=== PATIENT | female | born 1955 | race Caucasian/White ===

== ENCOUNTER 2021-07-17 14:19 | Inpatient (IN) | payer MEDICARE, BC ==
[2021-07-17] MEDS ORDERED: Baclofen 10 MG TAB PO PRN (17:55)
[2021-07-17] MEDS ORDERED: Furosemide 40 MG TAB PO PRN (17:55)
[2021-07-17] MEDS ORDERED: Promethazine 25 MG TAB PO PRN (17:55)
[2021-07-17] MEDS ORDERED: Dextrose 5% in Water 1,000 ML IV PRN (18:12)
[2021-07-17] MEDS ORDERED: Dextrose 50% Abboject 50 ML SYRINGE SLOW IVP PRN (18:12)
[2021-07-17] MEDS ORDERED: Albuterol 200 PUFF (6.7GM INHALER) INH PRN (18:58)
[2021-07-17] MEDS ORDERED: SUMAtriptan Succinate 25 MG TAB PO PRN (19:01)
[2021-07-17] MEDS: Temazepam 15 MG CAP PO SCH (22:01)
[2021-07-17] MEDS: Pregabalin 50 MG CAP PO SCH (22:02)
[2021-07-17] MEDS: NIFEdipine XL 30 MG TAB PO SCH (22:04)
[2021-07-17] MEDS: Carvedilol 6.25 MG TAB PO SCH (22:05)
[2021-07-17] MEDS: hydrALAZINE 25 MG TAB PO SCH (22:05)
[2021-07-17] MEDS: Insulin Regular 300 UNITS/3 ML VIAL SC PRN (22:06)
[2021-07-17] MEDS: Dronedarone HCl 400 MG TAB PO SCH (22:06)
[2021-07-18] MEDS: Levothyroxine Sodium 100 MCG TAB PO SCH (06:04)
[2021-07-18] MEDS: Levothyroxine Sodium 25 MCG TAB PO SCH (06:04)
[2021-07-18] MEDS ORDERED: Non-Formulary Item 1 EACH (Temazepam [Temazepam] 30 MG Capsule) PO SCH (09:00)
[2021-07-18] MEDS ORDERED: Levothyroxine Sodium 100 MCG TAB PO SCH (09:00)
[2021-07-18] MEDS: Enoxaparin Sodium 30 MG/0.3 ML SYRINGE SC SCH (09:39)
[2021-07-18] MEDS: Dronedarone HCl 400 MG TAB PO SCH ×2 (09:40→20:49)
[2021-07-18] MEDS: Aspirin 81 mg Enteric Coated Tablet PO SCH (09:40)
[2021-07-18] MEDS: Rosuvastatin 10 MG TAB PO SCH (09:41)
[2021-07-18] MEDS: NIFEdipine XL 30 MG TAB PO SCH ×2 (09:42→20:53)
[2021-07-18] MEDS: Furosemide 40 MG TAB PO SCH (09:42)
[2021-07-18] MEDS: hydrALAZINE 25 MG TAB PO SCH ×3 (09:43→20:53)
[2021-07-18] MEDS: predniSONE 10 MG TAB PO SCH (09:44)
[2021-07-18] MEDS: Carvedilol 6.25 MG TAB PO SCH ×2 (09:44→20:50)
[2021-07-18] MEDS: HumaLOG 300 UNITS/3 ML VIAL SC PRN ×2 (13:04→17:23)
[2021-07-18] MEDS: Acetaminophen/Codeine 30-300mg Tablet PO PRN (13:11)
[2021-07-18] MEDS: Temazepam 15 MG CAP PO SCH (20:46)
[2021-07-18] MEDS: Insulin Regular 300 UNITS/3 ML VIAL SC PRN (20:46)
[2021-07-18] MEDS: Pregabalin 50 MG CAP PO SCH (20:47)
[2021-07-19] MEDS: Levothyroxine Sodium 25 MCG TAB PO SCH (05:56)
[2021-07-19] MEDS: Levothyroxine Sodium 100 MCG TAB PO SCH (05:57)
[2021-07-19] MEDS: Dronedarone HCl 400 MG TAB PO SCH ×2 (10:09→20:17)
[2021-07-19] MEDS: Aspirin 81 mg Enteric Coated Tablet PO SCH (10:10)
[2021-07-19] MEDS: Enoxaparin Sodium 30 MG/0.3 ML SYRINGE SC SCH (10:11)
[2021-07-19] MEDS: hydrALAZINE 25 MG TAB PO SCH ×3 (10:11→20:17)
[2021-07-19] MEDS: NIFEdipine XL 30 MG TAB PO SCH ×2 (10:12→20:17)
[2021-07-19] MEDS: Carvedilol 6.25 MG TAB PO SCH ×2 (10:13→20:17)
[2021-07-19] MEDS: Furosemide 40 MG TAB PO SCH (10:14)
[2021-07-19] MEDS: Acetaminophen/Codeine 30-300mg Tablet PO PRN ×2 (10:37→17:02)
[2021-07-19] MEDS ORDERED: predniSONE 20 MG TAB PO SCH (10:45)
[2021-07-19] MEDS: HumaLOG 300 UNITS/3 ML VIAL SC PRN (19:44)
[2021-07-19] MEDS: Pregabalin 75 MG CAP PO SCH (20:14)
[2021-07-19] MEDS: Rosuvastatin 10 MG TAB PO SCH ×2 (20:16→20:21)
[2021-07-19] MEDS: Temazepam 15 MG CAP PO SCH (20:16)
[2021-07-19] MEDS: predniSONE 10 MG TAB PO SCH (20:21)
[2021-07-20] MEDS: Levothyroxine Sodium 25 MCG TAB PO SCH (05:36)
[2021-07-20] MEDS: Levothyroxine Sodium 100 MCG TAB PO SCH (05:36)
[2021-07-20] MEDS: Enoxaparin Sodium 30 MG/0.3 ML SYRINGE SC SCH (09:42)
[2021-07-20] MEDS: NIFEdipine XL 30 MG TAB PO SCH ×2 (09:43→20:40)
[2021-07-20] MEDS: Aspirin 81 mg Enteric Coated Tablet PO SCH (09:43)
[2021-07-20] MEDS: predniSONE 20 MG TAB PO SCH (09:43)
[2021-07-20] MEDS: Carvedilol 6.25 MG TAB PO SCH ×2 (09:43→20:42)
[2021-07-20] MEDS: hydrALAZINE 25 MG TAB PO SCH ×3 (09:44→20:40)
[2021-07-20] MEDS: Dronedarone HCl 400 MG TAB PO SCH ×2 (09:44→20:42)
[2021-07-20] MEDS: Furosemide 40 MG TAB PO SCH (09:48)
[2021-07-20] MEDS: HumaLOG 300 UNITS/3 ML VIAL SC PRN ×2 (13:00→17:20)
[2021-07-20] MEDS: Acetaminophen/Codeine 30-300mg Tablet PO PRN (15:19)
[2021-07-20] MEDS: Temazepam 15 MG CAP PO SCH (20:40)
[2021-07-20] MEDS: Rosuvastatin 10 MG TAB PO SCH (20:41)
[2021-07-20] MEDS: Pregabalin 75 MG CAP PO SCH (20:42)
[2021-07-20] MEDS: Insulin Regular 300 UNITS/3 ML VIAL SC PRN (21:00)
[2021-07-21] MEDS: Levothyroxine Sodium 25 MCG TAB PO SCH (06:09)
[2021-07-21] MEDS: Levothyroxine Sodium 100 MCG TAB PO SCH (06:19)
[2021-07-21] MEDS: Enoxaparin Sodium 30 MG/0.3 ML SYRINGE SC SCH (10:05)
[2021-07-21] MEDS: predniSONE 20 MG TAB PO SCH (10:06)
[2021-07-21] MEDS: Aspirin 81 mg Enteric Coated Tablet PO SCH (10:06)
[2021-07-21] MEDS: NIFEdipine XL 30 MG TAB PO SCH ×2 (10:06→21:50)
[2021-07-21] MEDS: hydrALAZINE 25 MG TAB PO SCH ×3 (10:07→21:50)
[2021-07-21] MEDS: Dronedarone HCl 400 MG TAB PO SCH ×2 (10:08→21:49)
[2021-07-21] MEDS: Furosemide 40 MG TAB PO SCH (10:08)
[2021-07-21] MEDS: Carvedilol 6.25 MG TAB PO SCH ×2 (10:08→21:49)
[2021-07-21] MEDS: clonazePAM 0.5 MG TAB PO PRN (14:36)
[2021-07-21] MEDS: HumaLOG 300 UNITS/3 ML VIAL SC PRN (17:10)
[2021-07-21] MEDS: Temazepam 15 MG CAP PO SCH (21:49)
[2021-07-21] MEDS: Rosuvastatin 10 MG TAB PO SCH (21:49)
[2021-07-21] MEDS: Pregabalin 75 MG CAP PO SCH (21:51)
[2021-07-22] MEDS: Levothyroxine Sodium 25 MCG TAB PO SCH (06:39)
[2021-07-22] MEDS: Levothyroxine Sodium 100 MCG TAB PO SCH (06:39)
[2021-07-22] MEDS: Enoxaparin Sodium 30 MG/0.3 ML SYRINGE SC SCH (09:35)
[2021-07-22] MEDS: predniSONE 20 MG TAB PO SCH (09:36)
[2021-07-22] MEDS: NIFEdipine XL 30 MG TAB PO SCH ×2 (09:40→20:41)
[2021-07-22] MEDS: Carvedilol 6.25 MG TAB PO SCH ×2 (09:44→20:42)
[2021-07-22] MEDS: hydrALAZINE 25 MG TAB PO SCH ×3 (09:45→20:42)
[2021-07-22] MEDS: Furosemide 40 MG TAB PO SCH (09:46)
[2021-07-22] MEDS: Aspirin 81 mg Enteric Coated Tablet PO SCH (09:46)
[2021-07-22] MEDS: Dronedarone HCl 400 MG TAB PO SCH ×2 (09:46→20:40)
[2021-07-22] MEDS: HumaLOG 300 UNITS/3 ML VIAL SC PRN (17:41)
[2021-07-22] MEDS: Pregabalin 75 MG CAP PO SCH (20:38)
[2021-07-22] MEDS: Temazepam 15 MG CAP PO SCH (20:40)
[2021-07-22] MEDS: Rosuvastatin 10 MG TAB PO SCH (20:41)
[2021-07-23] MEDS: Acetaminophen/Codeine 30-300mg Tablet PO PRN ×2 (04:48→12:26)
[2021-07-23] MEDS: Levothyroxine Sodium 25 MCG TAB PO SCH (04:50)
[2021-07-23] MEDS: Levothyroxine Sodium 100 MCG TAB PO SCH (04:50)
[2021-07-23] MEDS: clonazePAM 0.5 MG TAB PO PRN (10:00)
[2021-07-23] MEDS: Enoxaparin Sodium 30 MG/0.3 ML SYRINGE SC SCH (10:01)
[2021-07-23] MEDS: predniSONE 20 MG TAB PO SCH (10:02)
[2021-07-23] MEDS: NIFEdipine XL 30 MG TAB PO SCH ×2 (10:03→21:02)
[2021-07-23] MEDS: Carvedilol 6.25 MG TAB PO SCH ×2 (10:04→21:02)
[2021-07-23] MEDS: Aspirin 81 mg Enteric Coated Tablet PO SCH (10:05)
[2021-07-23] MEDS: Dronedarone HCl 400 MG TAB PO SCH ×2 (10:05→21:00)
[2021-07-23] MEDS: hydrALAZINE 25 MG TAB PO SCH ×3 (10:05→21:02)
[2021-07-23] MEDS: Furosemide 40 MG TAB PO SCH (10:07)
[2021-07-23] MEDS: HumaLOG 300 UNITS/3 ML VIAL SC PRN ×3 (12:27→21:03)
[2021-07-23] MEDS: Pregabalin 75 MG CAP PO SCH (21:01)
[2021-07-23] MEDS: Rosuvastatin 10 MG TAB PO SCH (21:02)
[2021-07-23] MEDS: Temazepam 15 MG CAP PO SCH (21:03)
[2021-07-24] MEDS: Levothyroxine Sodium 25 MCG TAB PO SCH (05:42)
[2021-07-24] MEDS: Levothyroxine Sodium 100 MCG TAB PO SCH (05:42)
[2021-07-24] MEDS: Furosemide 40 MG TAB PO SCH (07:57)
[2021-07-24] MEDS: predniSONE 20 MG TAB PO SCH (07:57)
[2021-07-24] MEDS: Acetaminophen/Codeine 30-300mg Tablet PO PRN (10:04)
[2021-07-24] MEDS: Aspirin 81 mg Enteric Coated Tablet PO SCH (10:06)
[2021-07-24] MEDS: Dronedarone HCl 400 MG TAB PO SCH ×2 (10:06→21:14)
[2021-07-24] MEDS: Carvedilol 6.25 MG TAB PO SCH ×2 (10:07→21:14)
[2021-07-24] MEDS: Enoxaparin Sodium 30 MG/0.3 ML SYRINGE SC SCH (10:07)
[2021-07-24] MEDS: NIFEdipine XL 30 MG TAB PO SCH ×2 (10:09→21:15)
[2021-07-24] MEDS: hydrALAZINE 25 MG TAB PO SCH ×3 (10:10→21:16)
[2021-07-24] MEDS: clonazePAM 0.5 MG TAB PO PRN (10:33)
[2021-07-24] MEDS: HumaLOG 300 UNITS/3 ML VIAL SC PRN ×2 (11:49→17:39)
[2021-07-24] MEDS: Rosuvastatin 10 MG TAB PO SCH (21:14)
[2021-07-24] MEDS: Pregabalin 75 MG CAP PO SCH (21:16)
[2021-07-24] MEDS: Temazepam 15 MG CAP PO SCH (21:16)
[2021-07-25] MEDS: Levothyroxine Sodium 100 MCG TAB PO SCH (05:28)
[2021-07-25] MEDS: Levothyroxine Sodium 25 MCG TAB PO SCH (05:28)
[2021-07-25] MEDS: Enoxaparin Sodium 30 MG/0.3 ML SYRINGE SC SCH (09:10)
[2021-07-25] MEDS: Carvedilol 6.25 MG TAB PO SCH ×2 (09:10→20:56)
[2021-07-25] MEDS: hydrALAZINE 25 MG TAB PO SCH ×3 (09:11→20:55)
[2021-07-25] MEDS: NIFEdipine XL 30 MG TAB PO SCH ×2 (09:11→20:55)
[2021-07-25] MEDS: Dronedarone HCl 400 MG TAB PO SCH ×2 (09:11→20:55)
[2021-07-25] MEDS: predniSONE 20 MG TAB PO SCH (09:12)
[2021-07-25] MEDS: Furosemide 40 MG TAB PO SCH ×2 (09:12→20:56)
[2021-07-25] MEDS: Aspirin 81 mg Enteric Coated Tablet PO SCH (09:12)
[2021-07-25] MEDS: HumaLOG 300 UNITS/3 ML VIAL SC PRN ×2 (12:41→18:01)
[2021-07-25] MEDS: clonazePAM 0.5 MG TAB PO PRN (15:31)
[2021-07-25] MEDS: Temazepam 15 MG CAP PO SCH (20:55)
[2021-07-25] MEDS: Rosuvastatin 10 MG TAB PO SCH (20:55)
[2021-07-25] MEDS: Pregabalin 75 MG CAP PO SCH (20:58)
[2021-07-26] MEDS: Levothyroxine Sodium 25 MCG TAB PO SCH (05:36)
[2021-07-26] MEDS: Levothyroxine Sodium 100 MCG TAB PO SCH (05:36)
[2021-07-26] MEDS: Enoxaparin Sodium 30 MG/0.3 ML SYRINGE SC SCH (09:34)
[2021-07-26] MEDS: NIFEdipine XL 30 MG TAB PO SCH ×2 (09:35→20:39)
[2021-07-26] MEDS: hydrALAZINE 25 MG TAB PO SCH ×3 (09:37→20:40)
[2021-07-26] MEDS: Dronedarone HCl 400 MG TAB PO SCH ×2 (09:37→20:39)
[2021-07-26] MEDS: Furosemide 40 MG TAB PO SCH (09:37)
[2021-07-26] MEDS: Aspirin 81 mg Enteric Coated Tablet PO SCH (09:37)
[2021-07-26] MEDS: predniSONE 20 MG TAB PO SCH (09:38)
[2021-07-26] MEDS: Carvedilol 6.25 MG TAB PO SCH ×2 (09:38→20:39)
[2021-07-26] MEDS: Acetaminophen/Codeine 30-300mg Tablet PO PRN (12:17)
[2021-07-26 14:39] LABS: SARS-CoV-2 PCR by NAA Not Detected (NotDetected)
[2021-07-26] MEDS: HumaLOG 300 UNITS/3 ML VIAL SC PRN (17:41)
[2021-07-26] MEDS: Rosuvastatin 10 MG TAB PO SCH (20:39)
[2021-07-26] MEDS: Pregabalin 75 MG CAP PO SCH (20:42)
[2021-07-26] MEDS: Temazepam 15 MG CAP PO SCH (20:42)
[2021-07-27] MEDS: Levothyroxine Sodium 100 MCG TAB PO SCH (05:23)
[2021-07-27] MEDS: Levothyroxine Sodium 25 MCG TAB PO SCH (05:24)
[2021-07-27] MEDS: Enoxaparin Sodium 30 MG/0.3 ML SYRINGE SC SCH (08:17)
[2021-07-27] MEDS: clonazePAM 0.5 MG TAB PO PRN (08:17)
[2021-07-27] MEDS: Dronedarone HCl 400 MG TAB PO SCH ×2 (08:18→20:01)
[2021-07-27] MEDS: NIFEdipine XL 30 MG TAB PO SCH ×2 (08:18→20:01)
[2021-07-27] MEDS: Aspirin 81 mg Enteric Coated Tablet PO SCH (08:18)
[2021-07-27] MEDS: Carvedilol 6.25 MG TAB PO SCH ×2 (08:19→20:01)
[2021-07-27] MEDS: hydrALAZINE 25 MG TAB PO SCH ×3 (08:19→20:01)
[2021-07-27] MEDS: predniSONE 20 MG TAB PO SCH (08:19)
[2021-07-27] MEDS: Furosemide 40 MG TAB PO SCH (08:20)
[2021-07-27] MEDS: HumaLOG 300 UNITS/3 ML VIAL SC PRN ×2 (12:21→16:52)
[2021-07-27] MEDS: Acetaminophen/Codeine 30-300mg Tablet PO PRN (14:44)
[2021-07-27] MEDS: Rosuvastatin 10 MG TAB PO SCH (19:59)
[2021-07-27] MEDS: Temazepam 15 MG CAP PO SCH (19:59)
[2021-07-27] MEDS: Pregabalin 75 MG CAP PO SCH (20:00)
[2021-07-28] MEDS: Acetaminophen/Codeine 30-300mg Tablet PO PRN ×3 (04:10→20:32)
[2021-07-28] MEDS: Levothyroxine Sodium 100 MCG TAB PO SCH (05:27)
[2021-07-28] MEDS: Levothyroxine Sodium 25 MCG TAB PO SCH (05:27)
[2021-07-28] MEDS: Enoxaparin Sodium 30 MG/0.3 ML SYRINGE SC SCH (09:34)
[2021-07-28] MEDS: Aspirin 81 mg Enteric Coated Tablet PO SCH (09:34)
[2021-07-28] MEDS: predniSONE 10 MG TAB PO SCH (09:35)
[2021-07-28] MEDS: NIFEdipine XL 30 MG TAB PO SCH ×2 (09:35→20:30)
[2021-07-28] MEDS: Furosemide 40 MG TAB PO SCH (09:35)
[2021-07-28] MEDS: Carvedilol 6.25 MG TAB PO SCH ×2 (09:37→20:30)
[2021-07-28] MEDS: Dronedarone HCl 400 MG TAB PO SCH ×2 (09:38→20:30)
[2021-07-28] MEDS: hydrALAZINE 25 MG TAB PO SCH ×3 (09:38→20:30)
[2021-07-28] MEDS ORDERED: clonazePAM 0.5 MG TAB PO PRN (11:24)
[2021-07-28 11:41] VITALS: BMI 52.5
[2021-07-28] MEDS: HumaLOG 300 UNITS/3 ML VIAL SC PRN (11:42)
[2021-07-28] MEDS: Temazepam 15 MG CAP PO SCH (20:29)
[2021-07-28] MEDS: Rosuvastatin 10 MG TAB PO SCH (20:30)
[2021-07-28] MEDS: Pregabalin 75 MG CAP PO SCH (20:31)
[2021-07-29] MEDS: Levothyroxine Sodium 25 MCG TAB PO SCH (05:24)
[2021-07-29] MEDS: Levothyroxine Sodium 100 MCG TAB PO SCH (05:24)
[2021-07-29] MEDS: Enoxaparin Sodium 30 MG/0.3 ML SYRINGE SC SCH (08:29)
[2021-07-29] MEDS: Dronedarone HCl 400 MG TAB PO SCH ×2 (08:29→21:21)
[2021-07-29] MEDS: Aspirin 81 mg Enteric Coated Tablet PO SCH (08:31)
[2021-07-29] MEDS: predniSONE 10 MG TAB PO SCH (08:31)
[2021-07-29] MEDS: NIFEdipine XL 30 MG TAB PO SCH ×2 (08:31→21:20)
[2021-07-29] MEDS: hydrALAZINE 25 MG TAB PO SCH ×3 (08:32→21:21)
[2021-07-29] MEDS: Carvedilol 6.25 MG TAB PO SCH ×2 (08:32→21:21)
[2021-07-29] MEDS: Furosemide 40 MG TAB PO SCH (08:33)
[2021-07-29] MEDS: HumaLOG 300 UNITS/3 ML VIAL SC PRN ×2 (12:13→17:05)
[2021-07-29] MEDS: Acetaminophen/Codeine 30-300mg Tablet PO PRN (14:14)
[2021-07-29] MEDS: Temazepam 15 MG CAP PO SCH (21:17)
[2021-07-29] MEDS: Pregabalin 75 MG CAP PO SCH (21:18)
[2021-07-29] MEDS: Rosuvastatin 10 MG TAB PO SCH (21:21)
[2021-07-30 05:07] VITALS: BP 145/67; TEMP 97.9
[2021-07-30] MEDS: Levothyroxine Sodium 100 MCG TAB PO SCH (05:51)
[2021-07-30] MEDS: Levothyroxine Sodium 25 MCG TAB PO SCH (05:51)
[2021-07-30] MEDS: NIFEdipine XL 30 MG TAB PO SCH (08:47)
[2021-07-30] MEDS: Enoxaparin Sodium 30 MG/0.3 ML SYRINGE SC SCH (08:49)
[2021-07-30] MEDS: hydrALAZINE 25 MG TAB PO SCH (08:50)
[2021-07-30] MEDS: Dronedarone HCl 400 MG TAB PO SCH (08:50)
[2021-07-30] MEDS: Aspirin 81 mg Enteric Coated Tablet PO SCH (08:50)
[2021-07-30] MEDS: Furosemide 40 MG TAB PO SCH (08:50)
[2021-07-30] MEDS: predniSONE 10 MG TAB PO SCH (08:50)
[2021-07-30] MEDS: Carvedilol 6.25 MG TAB PO SCH (08:50)
== END 2021-07-30 11:45 | disposition home or self-care (01) | DRG 948 ==
LOC: BURMED 15:30
PROVIDERS: ADMIT Family Medicine; ATTEND Family Medicine
DX: R53.81 Other malaise (principal); J44.1 Chronic obstructive pulmonary disease with (acute) exacerbation; I50.32 Chronic diastolic (congestive) heart failure; I13.0 Hypertensive heart and chronic kidney disease with heart failure and stage 1 through stage 4 chronic kidney disease, or unspecified chronic kidney disease; N18.30 Chronic kidney disease, stage 3 unspecified; E78.5 Hyperlipidemia, unspecified; E03.9 Hypothyroidism, unspecified; F32.A Depression, unspecified; F41.9 Anxiety disorder, unspecified; G47.33 Obstructive sleep apnea (adult) (pediatric); I25.10 Atherosclerotic heart disease of native coronary artery without angina pectoris; G89.4 Chronic pain syndrome; Z88.8 Allergy status to other drugs, medicaments and biological substances; Z79.82 Long term (current) use of aspirin; Z79.899 Other long term (current) drug therapy; Z90.89 Acquired absence of other organs
CPT/HCPCS: 36416; J1650; J1815; J7512; U0003; U0005